=== PATIENT | female | born 1935 | race Caucasian/White ===

== ENCOUNTER 2019-02-21 16:29 | Inpatient (IN) | payer MEDICARE, MEDICAID ==
[~2019-02-21] VITALS: Ht 152.4 cm; Wt 57.2 kg
[2019-02-21] MEDS ORDERED: LORAZEPAM 2 MG/1 ML VIAL IV ONE (16:45)
[2019-02-21] MEDS ORDERED: diphenhydrAMINE 50 MG/1 ML VIAL IM ONE (16:45)
[2019-02-21] MEDS ORDERED: HALOPERIDOL LACTATE 5 MG/1 ML VIAL IM ONE (16:45)
[2019-02-21] MEDS ORDERED: HALOPERIDOL LACTATE 5 MG/1 ML VIAL ONE (16:46)
[2019-02-21] MEDS ORDERED: LORAZEPAM 2 MG/1 ML VIAL ONE (16:48)
[2019-02-21] MEDS ORDERED: diphenhydrAMINE 50 MG/1 ML VIAL ONE (16:52)
[2019-02-21] MEDS ORDERED: LORAZEPAM 2 MG/1 ML VIAL IM ONE (17:00)
[2019-02-21 17:11] LABS: BASOPHILS % (AUTO) 0.3 % (0.0-2.0); EOSINOPHILS # (AUTO) 0.1 K/uL (0.0-0.7); HEMATOCRIT 38.3 % (31.2-41.9); HEMOGLOBIN 12.3 g/dL (10.9-14.3); LYMPHOCYTES # (AUTO) 0.4 K/uL (20.0-40.0); LYMPHOCYTES % (AUTO) 5.2 % (20.5-51.5); MEAN CORPUSCULAR HEMOGLOBIN 27.4 uug (24.7-32.8); MEAN CORPUSCULAR HGB CONC 32 g/dL (32.3-35.6); MEAN CORPUSCULAR VOLUME 85.6 fL (75.5-95.3); MONOCYTES % (AUTO) 11.9 % (0.0-11.0); NEUTROPHILS # (AUTO) 6.8 K/uL (1.8-8.9); NEUTROPHILS % (AUTO) 81.6 % (38.5-71.5); PLATELET COUNT (AUTO) 390 K/uL (179-408); RED BLOOD CELL COUNT(AUTO) 4.48 MIL/uL (3.63-4.92); WHITE BLOOD COUNT (AUTO) 8.3 K/uL (3.8-11.8)
[2019-02-21 17:13] LABS: CARBON DIOXIDE 35 mmol/L (21-32); CHLORIDE 104 mmol/L (98-107); CREATININE 0.9 mg/dL (0.6-1.3); GLUCOSE 116 mg/dL (74-106); POTASSIUM 2.9 mmol/L (3.5-5.1); UREA NITROGEN, BLOOD 28 mg/dL (7-18)
[2019-02-21] MEDS ORDERED: AMLO2.5T4 PO (17:15)
[2019-02-21] MEDS ORDERED: DILTIAZEM HCL 25 MG IV IV ONE (17:15)
[2019-02-21] MEDS ORDERED: ASPIRIN 81 MG TAB.CHEW PO ONE (17:15)
[2019-02-21] MEDS ORDERED: APIX2.5T PO (17:16)
[2019-02-21] MEDS ORDERED: CARV3.12 PO (17:16)
[2019-02-21] MEDS ORDERED: FURO-152 PO (17:16)
[2019-02-21] MEDS ORDERED: DOCU100C36 PO (17:16)
[2019-02-21] MEDS ORDERED: MELA3TAB PO (17:17)
[2019-02-21] MEDS ORDERED: PRAV80TA21 PO (17:17)
[2019-02-21] MEDS ORDERED: FAMO-132 PO (17:17)
[2019-02-21] MEDS ORDERED: MULT1TAB73 PO (17:17)
[2019-02-21] MEDS ORDERED: MAGN400O6 PO (17:17)
[2019-02-21 17:19] LABS: ALANINE AMINOTRANSFERASE 39 U/L (14-59); ALKALINE PHOSPHATASE 155 U/L (50-136); ASPARTATE AMINOTRANSFERASE 40 U/L (15-37); BILIRUBIN,DIRECT 0.3 mg/dL (0.0-0.2); BILIRUBIN,TOTAL 0.8 mg/dL (0.2-1.0); TOTAL PROTEIN, SERUM 6.6 g/dL (6.4-8.2)
[2019-02-21] MEDS ORDERED: CHOL500050 PO (17:19)
[2019-02-21] MEDS ORDERED: ACET-2154 PO (17:19)
[2019-02-21] MEDS ORDERED: TRAZ-182 PO (17:19)
[2019-02-21] MEDS ORDERED: LISI-656 PO (17:19)
[2019-02-21 17:22] LABS: ACETAMINOPHEN < 2.0 ug/mL (10-30)
[2019-02-21 17:27] LABS: ETHANOL < 3 MG/DL (0-0)
[2019-02-21] MEDS ORDERED: ASPIRIN 81 MG TAB.CHEW ONE (17:29)
[2019-02-21] MEDS ORDERED: DILTIAZEM HCL 25 MG IV ONE (17:29)
--- NOTE | 2019-02-21 17:33 | NUR ---
Panel call placed at this time.
--- NOTE | 2019-02-21 17:43 | NUR ---
Neno Gregory at bedside for patient evaluation.
--- NOTE | 2019-02-21 17:46 | NUR ---
Pt. admitted to telemetry , under care of Neno Gregory NP. Dx: Rapid A-fib. Belongs List completed
--- NOTE | 2019-02-21 17:53 | NUR ---
Report to Ran Rn on Telemetry
[2019-02-21] MEDS ORDERED: Medication Not On Formulary EA (Cholecalciferol (Vitamin D3) (Vitamin D3 CAPSULE) 50,000 PO SCH (18:00)
[2019-02-21] MEDS ORDERED: TEMAZEPAM 15 MG CAPSULE PO PRN (18:15)
[2019-02-21] MEDS ORDERED: Z GUARD REMEDY PASTE 57 GM TUBE TOP PRN (18:15)
[2019-02-21] MEDS ORDERED: FUROSEMIDE 40 MG/4 ML VIAL IV ONE ×2 (18:15→23:45)
[2019-02-21] MEDS ORDERED: ONDANSETRON 4 MG/2 ML VIAL IV PRN (18:15)
[2019-02-21] MEDS ORDERED: LORAZEPAM 2 MG/1 ML VIAL IV PRN (18:15)
[2019-02-21] MEDS ORDERED: HYDROCODONE/APAP 5-325MG TABLET PO PRN (18:15)
[2019-02-21] MEDS ORDERED: MAGNESIUM HYDROXIDE 30 ML LIQUID UDC PO PRN (18:15)
[2019-02-21] MEDS ORDERED: MORPHINE SULFATE 2 MG/1 ML DISP.SYRIN IV PRN (18:15)
--- NOTE | 2019-02-21 18:42 | NUR ---
report received from ER nurse. vitals done. pt shows afib on tele monitor. other vitals stable. pt placed on oxygen. skin assessment done. pt has skin tear on buttocks. pictures taken and placed on chart. WOCN nurse consult done. belongings check done by career portals teacher. pt has pitting edema on legs. will administer medications and continue to monitor as ordered.
[2019-02-21 18:55] VITALS: BP 100/48
[2019-02-21] MEDS: POTASSIUM CHLORIDE 50 ML IV SCH ×3 (18:59→21:15)
--- NOTE | 2019-02-21 20:00 | NUR ---
Received report from WALTER Lepe. Patient open eyes when stimulated and follows commands. NO signs of distress noted. Patient is on O2 2L NC. IV is on the right hand, patent and intact. TELE afib at 95. Lungs sounds diminished. Bowel sounds hypoactive. Incontinent with diaper. Bilateral lower extremity pitting edema, R leg 3+, left leg 2+. Safety initiated. Call light within reach. Will continue to monitor.
[2019-02-21 20:10] VITALS: BP 99/54
[2019-02-21] MEDS: FAMOTIDINE 20 MG TABLET PO SCH (20:16)
[2019-02-21] MEDS: ATORVASTATIN 20 MG TABLET PO SCH (20:16)
[2019-02-21] MEDS: CARVEDILOL 3.125 MG TABLET PO SCH (20:20)
[2019-02-21] MEDS ORDERED: TRAZODONE 50 MG TABLET PO SCH (21:00)
--- NOTE | 2019-02-21 22:51 | NUR ---
Patient has shallow breathing, not labored. RR is 22. O2 sat is 93. Will closely monitored.
--- NOTE | 2019-02-21 23:30 | NUR ---
Patient appeared distress with rapid shallow breathing. Vital signs taken, desating to the high 70's to low 80's. Called RT, placed patient on non re breather mask at 15 L and deep suctioning to little improvement. TELE afib at 117. Reached out to [place] [employer] DESIGN ENGINEER. New orders placed. Will continue to monitor.
--- NOTE | 2019-02-21 23:35 | NUR ---
Breathing treatment given. Will continue to monitor.
[2019-02-22] MEDS: ALBUTEROL SULFATE 2.5 MG/3 ML NEBU NEB PRN (00:13)
[2019-02-22 00:25] VITALS: BP 140/75
[2019-02-22] MEDS ORDERED: VANCOMYCIN IV 1 G in PREMIXED 0 EACH IV ONE (00:30)
[2019-02-22] MEDS ORDERED: PIPERACILLIN/TAZOBACTAM/D5W 50 ML IV ONE ×2 (00:43)
[2019-02-22] MEDS ORDERED: VANCOMYCIN IV 200 ML ONE (00:43)
[2019-02-22 05:24] VITALS: BP 124/58
[2019-02-22 05:53] LABS: BASOPHILS % (AUTO) 0.2 % (0.0-2.0); EOSINOPHILS % (AUTO) 0.2 % (0.0-7.0); HEMOGLOBIN 13.5 g/dL (10.9-14.3); LYMPHOCYTES # (AUTO) 0.4 K/uL (20.0-40.0); LYMPHOCYTES % (AUTO) 3.9 % (20.5-51.5); MEAN CORPUSCULAR HEMOGLOBIN 27.4 uug (24.7-32.8); MEAN CORPUSCULAR HGB CONC 31 g/dL (32.3-35.6); MEAN CORPUSCULAR VOLUME 87.3 fL (75.5-95.3); MONOCYTES # (AUTO) 0.9 K/uL (2.0-10.0); MONOCYTES % (AUTO) 8.4 % (0.0-11.0); NEUTROPHILS # (AUTO) 9.3 K/uL (1.8-8.9); NEUTROPHILS % (AUTO) 87.3 % (38.5-71.5); PLATELET COUNT (AUTO) 299 K/uL (179-408); RED BLOOD CELL COUNT(AUTO) 4.92 MIL/uL (3.63-4.92); WHITE BLOOD COUNT (AUTO) 10.7 K/uL (3.8-11.8)
[2019-02-22 06:14] LABS: ALANINE AMINOTRANSFERASE 38 U/L (14-59); ALKALINE PHOSPHATASE 144 U/L (50-136); ASPARTATE AMINOTRANSFERASE 48 U/L (15-37); BILIRUBIN,TOTAL 0.8 mg/dL (0.2-1.0); CARBON DIOXIDE 31 mmol/L (21-32); CHLORIDE 105 mmol/L (98-107); CHOLESTEROL 95 mg/dL (<200); CREATININE 0.8 mg/dL (0.6-1.3); GLUCOSE 137 mg/dL (74-106); HDL CHOLESTEROL 32 mg/dL (40-60); MAGNESIUM 1.7 mg/dL (1.8-2.4); PHOSPHOROUS 3.7 mg/dL (2.5-4.9); POTASSIUM 3.6 mmol/L (3.5-5.1); TOTAL PROTEIN, SERUM 6.8 g/dL (6.4-8.2); TRIGLYCERIDES 60 MG/DL (30-150); UREA NITROGEN, BLOOD 24 mg/dL (7-18)
--- NOTE | 2019-02-22 06:14 | NUR ---
Patient slept intermittently t/o shift. Patient is easily aroused when name is called. Patient has period of confusion but re-directable. Patient remains on o2 NC at 5L sating at 96. TELE afib 119. Good urine output. Vitals signs is stable. Safety and comfort measures maintained t/o shift. All meds given as ordered. All needs met.
[2019-02-22] MEDS ORDERED: MAGNESIUM OXIDE 400 MG TABLET PO ONE (07:45)
[2019-02-22 07:47] LABS: THYROID STIMULATING HORMONE 1.825 mIU/mL (0.358-3.740)
[2019-02-22 08:09] VITALS: BP 127/82
[2019-02-22] MEDS ORDERED: DIGOXIN 500 MCG/2 ML AMP IV PRN (08:30)
[2019-02-22] MEDS: DOCUSATE SODIUM 100 MG CAPSULE PO SCH (08:48)
[2019-02-22] MEDS: FUROSEMIDE 40 MG/4 ML VIAL IV SCH ×2 (08:48→20:32)
[2019-02-22] MEDS: MULTIVITAMINS,THERAPEUTIC TABLET PO SCH (08:48)
[2019-02-22] MEDS: APIXABAN 5 MG TABLET PO SCH ×2 (08:52→17:27)
[2019-02-22] MEDS: AMLODIPINE 2.5 MG TABLET PO SCH (08:57)
[2019-02-22] MEDS: CARVEDILOL 3.125 MG TABLET PO SCH ×2 (08:57→20:33)
[2019-02-22] MEDS: LISINOPRIL 5 MG TABLET PO SCH (08:59)
[2019-02-22] MEDS ORDERED: Medication Not On Formulary EA (Apixaban (Eliquis) 2.5 MG) PO SCH (09:00)
[2019-02-22] MEDS ORDERED: Medication Not On Formulary EA (Multivitamins (Multivitamin) 1 EACH) PO SCH (09:00)
[2019-02-22 09:54] LABS: ABG BASE EXCESS 12.2 mmol/L; ABG HCO3 39.4 mmol/L; ABG PCO2 61.8 mmHg (35.0-45.0); ABG PH 7.422 (7.350-7.450); ABG PO2 62.8 mmHg (75.0-100.0); ABG SITE LEFT RADIAL; COHb 1.4 % (0.5-1.5); MetHb 0.3 % (0.0-1.5); VENT MODE Nasal Cannula
--- NOTE | 2019-02-22 10:16 | NUR ---
Dr. Mosher here to see pt. Full report given. New orders received.
[2019-02-22] MEDS: MAGNESIUM SULFATE/D5W 100 ML IV SCH ×2 (10:46→14:22)
[2019-02-22] MEDS: DIGOXIN 500 MCG/2 ML AMP IV SCH ×3 (10:46→22:30)
--- NOTE | 2019-02-22 11:08 | NUR ---
Clinical pharmacy note-Vancomycin dosing per pharmacy Subjective: To start Vancomycin dosing on this patient for possible pneumonia(Indication of order is pna but [employer]ING note mentioned CHF only for now) Objective: BUN 24 Scr 0.8 WBC 10.7 Temp 97.8 Ht 152.4cm Wt 56.897kg Assessment/Plan: Patient had Vancomycin 1 gram this am at 0110. Will continue 1gram IV every 27hrs(second dose tomorrow at 0400) and draw trough by 4th dose(not ordered yet) for expected trough around 15.69. If renal function changes significantly, will consider dosing by level(another risk factor is advanced age, 83 yrs old). Will monitor daily.
[2019-02-22] MEDS: PIPERACILLIN/TAZOBACTAM/D5W 50 ML IV SCH ×3 (11:55→23:54)
[2019-02-22 12:00] VITALS: BP 113/30
--- NOTE | 2019-02-22 12:06 | NUR ---
Spoke with Dr. Good on the telephone and reported ABG results. To maintain pt's saturation 88-92% per MD.
[2019-02-22] MEDS ORDERED: OLANZAPINE 2.5 MG TABLET PO PRN (14:45)
[2019-02-22 16:00] VITALS: BP 107/50
--- NOTE | 2019-02-22 20:00 | NUR ---
RECEIVED PATIENT ASLEEP IN BED, RESTING COMFORTABLY. NO SIGNS OF ACUTE DISTRESS OR DISCOMFORT NOTED OR OBSERVED. 1:1 SITTER AT BEDSIDE. ALL SAFETY AND FALL PRECAUTIONS IN PLACE. CALL LIGHT AND PERSONAL ITEMS WITHIN REACH AT ALL TIMES. WILL CONTINUE TO MONITOR.
[2019-02-22 20:22] VITALS: BP 102/39
[2019-02-22] MEDS: ATORVASTATIN 20 MG TABLET PO SCH (20:33)
[2019-02-22] MEDS: FAMOTIDINE 20 MG TABLET PO SCH (20:34)
[2019-02-22] MEDS: CULTURELLE CAPSULE PO SCH (20:34)
--- NOTE | 2019-02-22 22:10 | NUR ---
SPOKE WITH ISIDRO PARISI REGARDING PATIENT ORDER FOR DIGOXIN 250 MCG ORDERED BY MD CHAVARRIA. EXPLAINED THAT PATIENT RECEIVED FIRST DOSE AT 1730 AND EXPERIENCED A DECREASE IN HR TO 34 AT CHANGE OF SHIFT, BUT HR IS NOW IN 70S. ALSO ADVISED TELE SHOWS 3.5 SECOND PAUSES FOLLOWED BY 3 SECOND PAUSES AND BP IS LOW AT 102/39. MD ADVISED TO HOLD 2230 DOSE OF DIGOXIN AND DECREASE DIGOXIN DOSE TO 125 MCG. ORDERS NOTED AND CARRIED OUT.
[2019-02-23] VITALS (8 sets, daily range): BP systolic 113–140; BP diastolic 52–90
--- NOTE | 2019-02-23 00:47 | NUR ---
SPOKE WITH PHARMACY REGARDING 125 MCG DIGOXIN DOSE; CLARIFIED THAT IT SHOULD BE 3RD OF 3 DOSES PRESCRIBED BY MD CHAVARRIA ON 02/22/19. WILL HAVE AM SHIFT CLARIFY FURTHER WITH MD IN THE MORNING
--- NOTE | 2019-02-23 03:09 | NUR ---
VERIFIED WITH LAB THAT THEY HAVE NOT YET RECEIVED A URINE SAMPLE FOR CULTURE. PATIENT BECOMES EASILY AGITATED WHEN HOB IS LOWERED, WHICH WILL BE NEEDED IN ORDER TO USE CATH FOR URINE SAMPLE, SO PRESCRIBED .25ml/0.5mg ATIVAN GIVEN AT 0304 VIA IV, PRIOR TO COLLECTING SAMPLE FROM PATIENT.
--- NOTE | 2019-02-23 03:45 | NUR ---
URINE SPECIMEN OBTAINED VIA STRAIGHT CATH AND TAKEN TO LAB FOR URINE CULTURE/URINALYSIS
--- NOTE | 2019-02-23 03:50 | NUR ---
WOUND CARE PROVIDED FOR SACRAL DECUB - CLEANSED, APPLIED ZGUARD, AND COVERED WITH MEPILEX. PATIENT TOLERATED WELL.
[2019-02-23] MEDS: VANCOMYCIN IV 1 G in PREMIXED 0 EACH IV SCH (03:59)
[2019-02-23] MEDS: ALBUTEROL SULFATE 2.5 MG/3 ML NEBU NEB PRN ×2 (04:07→08:47)
[2019-02-23 04:13] LABS: *BILIRUBIN,URIN NEGATIVE (NEGATIVE); *BLOOD, URINE NEGATIVE (NEGATIVE); *CLARITY,URINE CLEAR (CLEAR); *COLOR,URINE YELLOW (YELLOW); *KETONES,URINE NEGATIVE (NEGATIVE); *UROBILINOGEN,URINE 0.2 E.U./dl (NORMAL); LEUKOCYTE ESTERASE ,URINE NEGATIVE (NEGATIVE); NITRITE, URINE NEGATIVE (NEGATIVE); UGLUCOSE NEGATIVE (NEGATIVE)
--- NOTE | 2019-02-23 04:15 | NUR ---
PATIENT COMPLAINING OF SOB AND REQUESTING BREATHING TREATMENT. I CONTACTED RESPIRATORY AND PRN BREATHING TREATMENT WAS GIVEN AND TOLERATED WELL.
--- NOTE | 2019-02-23 05:11 | NUR ---
PATIENT SLEPT INTERMITTENTLY THROUGHOUT NIGHT. COMPLAINTS OF PAIN WERE ADDRESSED WITH PRESCRIBED PAIN MEDICATION. URINE SAMPLE OBTAINED VIA STRAIGHT CATH AND SENT TO LAB FOR URINE CULTURE/ANALYSIS. PRN BREATHING TREATMENT PROVIDED BY RESPIRATORY DEPT REQUESTED BY PATIENT. PRESCRIBED ANTIBIOTICS PROVIDED VIA IV, ORDERED, AND PATIENT TOLERATED WELL, WITH NO SIGNS/SYMPTOMS OF ADVERSE EFFECTS NOTED OR OBSERVED. SAFETY AND FALL PRECAUTION MEASURES REMAIN IN PLACE. 1:1 SITTER AT BEDSIDE FOR PATIENT SAFETY. CALL LIGHT AND PERSONAL BELONGINGS REMAIN WITHIN REACH. WILL PROVIDE REPORT TO AM SHIFT.
[2019-02-23] MEDS: PIPERACILLIN/TAZOBACTAM/D5W 50 ML IV SCH ×4 (06:09→23:41)
[2019-02-23 06:41] LABS: BASOPHILS % (AUTO) 0.1 % (0.0-2.0); EOSINOPHILS # (AUTO) 0.1 K/uL (0.0-0.7); EOSINOPHILS % (AUTO) 0.9 % (0.0-7.0); HEMATOCRIT 38.5 % (31.2-41.9); HEMOGLOBIN 12.2 g/dL (10.9-14.3); LYMPHOCYTES # (AUTO) 0.4 K/uL (20.0-40.0); LYMPHOCYTES % (AUTO) 4.6 % (20.5-51.5); MEAN CORPUSCULAR HEMOGLOBIN 27.6 uug (24.7-32.8); MEAN CORPUSCULAR HGB CONC 32 g/dL (32.3-35.6); MEAN CORPUSCULAR VOLUME 87.3 fL (75.5-95.3); MONOCYTES # (AUTO) 0.7 K/uL (2.0-10.0); MONOCYTES % (AUTO) 7.9 % (0.0-11.0); NEUTROPHILS # (AUTO) 8.1 K/uL (1.8-8.9); NEUTROPHILS % (AUTO) 86.5 % (38.5-71.5); PLATELET COUNT (AUTO) 306 K/uL (179-408); RED BLOOD CELL COUNT(AUTO) 4.41 MIL/uL (3.63-4.92); WHITE BLOOD COUNT (AUTO) 9.4 K/uL (3.8-11.8)
[2019-02-23 06:57] LABS: ALANINE AMINOTRANSFERASE 23 U/L (14-59); ALKALINE PHOSPHATASE 108 U/L (50-136); ASPARTATE AMINOTRANSFERASE 25 U/L (15-37); CREATININE 0.9 mg/dL (0.6-1.3); GLUCOSE 127 mg/dL (74-106); MAGNESIUM 2.1 mg/dL (1.8-2.4); UREA NITROGEN, BLOOD 17 mg/dL (7-18)
[2019-02-23 07:38] LABS: CARBON DIOXIDE 39 mmol/L (21-32); CHLORIDE 104 mmol/L (98-107); POTASSIUM 3.3 mmol/L (3.5-5.1)
[2019-02-23] MEDS ORDERED: DIGOXIN 125 MCG TABLET PO SCH (09:30)
[2019-02-23] MEDS ORDERED: DIGOXIN 500 MCG/2 ML AMP IV SCH ×2 (10:00)
[2019-02-23 12:02] LABS: *AMPHETAMINE, URINE NEGATIVE (NEGATIVE); *BARBITURATE, URINE NEGATIVE (NEGATIVE); *CANNABINOID, URINE NEGATIVE (NEGATIVE); *COCCAINE, URINE NEGATIVE (NEGATIVE); *OPIATE, URINE NEGATIVE (NEGATIVE); *PHENCYCLIDINE SCREEN,URINE NEGATIVE (NEGATIVE)
--- NOTE | 2019-02-23 12:10 | NUR ---
Clinical pharmacy note-Vancomycin dosing per pharmacy Subjective: To continue Vancomycin dosing on this patient for possible pneumonia(Indication of order is pna but [employer]UC[employer] WEAP[employer] CUSTODIAN note mentioned CHF only for now) Objective: BUN 17 Scr 0.9 WBC 9.4 Temp 97.7 Ht 152.4cm Wt 56.897kg Assessment/Plan: Will continue 1gram IV every 27hrs(second dose was today at 0400) and draw trough by 4th dose(not ordered yet) for expected trough around 15.69. If renal function changes significantly, will consider dosing by level(another risk factor is advanced age, 83 yrs old). Will monitor daily.
[2019-02-23] MEDS: MULTIVITAMINS,THERAPEUTIC TABLET PO SCH (12:22)
[2019-02-23] MEDS: CULTURELLE CAPSULE PO SCH ×2 (12:22→20:52)
[2019-02-23] MEDS: CARVEDILOL 3.125 MG TABLET PO SCH ×2 (12:23→20:55)
[2019-02-23] MEDS: APIXABAN 5 MG TABLET PO SCH ×2 (12:24→18:50)
[2019-02-23] MEDS: DOCUSATE SODIUM 100 MG CAPSULE PO SCH (12:25)
[2019-02-23] MEDS: ACETAzolamide SODIUM 500 MG VIAL IV SCH (12:25)
[2019-02-23] MEDS: AMLODIPINE 2.5 MG TABLET PO SCH (12:25)
[2019-02-23] MEDS ORDERED: POTASSIUM CHLORIDE 50 ML IV SCH (13:15)
[2019-02-23] MEDS: POTASSIUM CHLORIDE 50 ML IV SCH ×3 (14:11→17:10)
[2019-02-23] MEDS: LISINOPRIL 5 MG TABLET PO SCH (15:16)
--- NOTE | 2019-02-23 18:41 | NUR ---
Patient with 1:1 sitter with stable vitals ; calm in comfortable in bed.
--- NOTE | 2019-02-23 19:30 | NUR ---
Report received. Patient lethargic, arouses to name, able to follow simple commands. Oriented to name only; some words garbled. With O2 at 2L NC. With 1:1 sitter for safety.
[2019-02-23] MEDS: FAMOTIDINE 20 MG TABLET PO SCH (20:52)
--- NOTE | 2019-02-24 | NUR ---
Sat 86% on 2L NC. O2 increased to 3L; sat improved. Cleaned and repositioned Q2H.
[2019-02-24 00:06] VITALS: BP 118/43
[2019-02-24] MEDS: ALBUTEROL SULFATE 2.5 MG/3 ML NEBU NEB PRN ×4 (02:44→20:41)
[2019-02-24 04:00] VITALS: BP 144/86
[2019-02-24] MEDS: PIPERACILLIN/TAZOBACTAM/D5W 50 ML IV SCH ×3 (05:23→18:41)
--- NOTE | 2019-02-24 05:30 | NUR ---
Mildly SOB and with increased congestion during diaper change. Sat 97-99% on 2 L NC. HOB elevated above 30 degrees at all times. PRODUCE SPECIALIST Jaelyn informed; order received. Flower catheter F#16 inserted aseptically; with clear yellow urine draining. Skin care provided. New Mepilex dressing to affected area.
--- NOTE | 2019-02-24 06:30 | NUR ---
No neuro changes. primary care nurse practitioner: Afib with rate 40's-120's and periods of pauses the longest was 12.3 seconds as per MT. Patient asymptomatic.
[2019-02-24] MEDS: VANCOMYCIN IV 1 G in PREMIXED 0 EACH IV SCH (06:54)
[2019-02-24 07:30] VITALS: BP 154/95
[2019-02-24 07:58] LABS: CARBON DIOXIDE 37 mmol/L (21-32); CHLORIDE 105 mmol/L (98-107); CREATININE 0.7 mg/dL (0.6-1.3); GLUCOSE 128 mg/dL (74-106); MAGNESIUM 2.1 mg/dL (1.8-2.4); PHOSPHOROUS 3.1 mg/dL (2.5-4.9); POTASSIUM 3.6 mmol/L (3.5-5.1); UREA NITROGEN, BLOOD 17 mg/dL (7-18)
[2019-02-24 08:13] LABS: BASOPHILS % (AUTO) 0.3 % (0.0-2.0); EOSINOPHILS # (AUTO) 0.1 K/uL (0.0-0.7); EOSINOPHILS % (AUTO) 1.2 % (0.0-7.0); HEMATOCRIT 37.6 % (31.2-41.9); HEMOGLOBIN 11.9 g/dL (10.9-14.3); LYMPHOCYTES # (AUTO) 0.4 K/uL (20.0-40.0); LYMPHOCYTES % (AUTO) 4.9 % (20.5-51.5); MEAN CORPUSCULAR HEMOGLOBIN 27.9 uug (24.7-32.8); MEAN CORPUSCULAR HGB CONC 32 g/dL (32.3-35.6); MEAN CORPUSCULAR VOLUME 87.8 fL (75.5-95.3); MONOCYTES # (AUTO) 0.5 K/uL (2.0-10.0); MONOCYTES % (AUTO) 5.8 % (0.0-11.0); NEUTROPHILS # (AUTO) 6.9 K/uL (1.8-8.9); NEUTROPHILS % (AUTO) 87.8 % (38.5-71.5); PLATELET COUNT (AUTO) 332 K/uL (179-408); RED BLOOD CELL COUNT(AUTO) 4.28 MIL/uL (3.63-4.92); WHITE BLOOD COUNT (AUTO) 7.8 K/uL (3.8-11.8)
[2019-02-24] MEDS ORDERED: ERGOCALCIFEROL 50,000 UNIT CAPSULE PO SCH (09:00)
[2019-02-24] MEDS: CARVEDILOL 3.125 MG TABLET PO SCH (09:00)
[2019-02-24] MEDS: DOCUSATE SODIUM 100 MG CAPSULE PO SCH (09:34)
[2019-02-24] MEDS: CULTURELLE CAPSULE PO SCH ×2 (09:34→20:20)
[2019-02-24] MEDS: ACETAzolamide SODIUM 500 MG VIAL IV SCH (09:34)
[2019-02-24] MEDS: MULTIVITAMINS,THERAPEUTIC TABLET PO SCH (09:35)
--- NOTE | 2019-02-24 09:35 | NUR ---
Dr Russ here to see patient. Student Officer showed strips of pauses, most was 12secs from hs captured while on tele monitor. Per Dr Russ ok to hold coreg.
[2019-02-24] MEDS: AMLODIPINE 2.5 MG TABLET PO SCH (09:36)
[2019-02-24] MEDS: LISINOPRIL 5 MG TABLET PO SCH (09:36)
[2019-02-24] MEDS: APIXABAN 5 MG TABLET PO SCH ×2 (09:40→17:27)
[2019-02-24] MEDS ORDERED: POTASSIUM CHLORIDE 20 MEQ TAB.PRT.SR PO ONE (10:45)
[2019-02-24 11:00] VITALS: BP 124/58
--- NOTE | 2019-02-24 12:21 | NUR ---
WOUND CARE CONSULT: PT PRESENTS WITH WOUND TO RT LOWER LEG WITH REDNESS AND SWELLING AND SACRAL STAGE 2 ULCER, PRESENT ON ADMISSION. PT ALSO NOTED TO HAVE SACRAL DIMPLE. RECOMMENDATIONS MADE FOR SKIN PROTECTION AND WOUND CARE. DISCUSSED WITH NURSING STAFF. DEFER TO DPM FOR RT LOWER LEG. DR MALIK AWARE OF DPM CONSULT REQUEST. FIRST STEP LOW AIRLOSS MATTRESS ON ORDER. CURRENT SLADE SCORE IS 12. WILL SEE PRN. PARISI IN AGREEMENT WITH PLAN OF CARE. Addendum: 02/24/19 at 1225 by JASMYN CATES RN Amended: Links added.
--- NOTE | 2019-02-24 12:40 | NUR ---
Clinical pharmacy note-Vancomycin dosing per pharmacy Subjective: To continue Vancomycin dosing on this patient for Acute encephalopathy ? UTI ?PNA per ID note Objective: BUN 17 Scr 0.7 WBC 7.8 Temp 98 Ht 152.4cm Wt 56.897kg Assessment/Plan: Will continue same dose of vanco 1gram IV every 27hrs for today. 3rd dose was today at 0700. Plan to draw trough by 4th dose (ordered for 02/25 at 0930) for expected trough around 15 mcg/ml. Pharmacy shall review the level & adjust the dose if needed in am. Will monitor daily.
[2019-02-24 15:39] VITALS: BP 125/60
[2019-02-24] MEDS ORDERED: LORA0.5T48 GT (15:54)
[2019-02-24] MEDS ORDERED: MULT-24 PO (15:56)
[2019-02-24] MEDS ORDERED: LISI-656 PO (15:57)
[2019-02-24] MEDS ORDERED: CYAN100096 PO (15:57)
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
[2019-02-24 20:00] VITALS: BP 122/40
[2019-02-24] MEDS: FAMOTIDINE 20 MG TABLET PO SCH (20:20)
[2019-02-24] MEDS: ACETAMINOPHEN 325 MG TABLET PO PRN (21:53)
[2019-02-24] MEDS ORDERED: PIPERACILLIN/TAZOBACTAM/D5W 100 ML IV ONE (21:59)
[2019-02-24] MEDS ORDERED: VANCOMYCIN IV 1 G in PREMIXED 0 EACH IV SCH (22:00)
[2019-02-24] MEDS: PIPERACILLIN/TAZOBACTAM/D5W 3.375 G in PREMIXED 1 EACH IV SCH (22:08)
[2019-02-24] MEDS ORDERED: VANCOMYCIN IV 200 ML ONE (22:15)
[2019-02-25] VITALS (11 sets, daily range): BP systolic 103–147; BP diastolic 65–90
[2019-02-25] MEDS: ALBUTEROL SULFATE 2.5 MG/3 ML NEBU NEB PRN (05:13)
--- NOTE | 2019-02-25 05:19 | NUR ---
Patient finally fall asleep, no complain of sob, no chest pain. Kept HOB elevated, on oxygen 2lpm for assist. Patient has no further episodes of moist cough at this time. Patient given tylenol as ordered for mild gen body pain with effective results. Patient has on and off anxiety episodes, cont to redirect behavior, npo at this time. cont on 1;1 sitter for safety, cont to monitor.
[2019-02-25] MEDS: PIPERACILLIN/TAZOBACTAM/D5W 3.375 G in PREMIXED 1 EACH IV SCH (05:37)
[2019-02-25 06:17] LABS: BASOPHILS % (AUTO) 0.5 % (0.0-2.0); EOSINOPHILS # (AUTO) 0.2 K/uL (0.0-0.7); EOSINOPHILS % (AUTO) 2.6 % (0.0-7.0); HEMATOCRIT 37.3 % (31.2-41.9); HEMOGLOBIN 11.7 g/dL (10.9-14.3); LYMPHOCYTES # (AUTO) 0.6 K/uL (20.0-40.0); LYMPHOCYTES % (AUTO) 9.3 % (20.5-51.5); MEAN CORPUSCULAR HEMOGLOBIN 27.4 uug (24.7-32.8); MEAN CORPUSCULAR HGB CONC 32 g/dL (32.3-35.6); MEAN CORPUSCULAR VOLUME 87.2 fL (75.5-95.3); MONOCYTES # (AUTO) 0.5 K/uL (2.0-10.0); MONOCYTES % (AUTO) 6.7 % (0.0-11.0); NEUTROPHILS # (AUTO) 5.5 K/uL (1.8-8.9); NEUTROPHILS % (AUTO) 80.9 % (38.5-71.5); PLATELET COUNT (AUTO) 328 K/uL (179-408); RED BLOOD CELL COUNT(AUTO) 4.28 MIL/uL (3.63-4.92); WHITE BLOOD COUNT (AUTO) 6.8 K/uL (3.8-11.8)
[2019-02-25 06:35] LABS: ALANINE AMINOTRANSFERASE 25 U/L (14-59); ALKALINE PHOSPHATASE 95 U/L (50-136); ASPARTATE AMINOTRANSFERASE 23 U/L (15-37); BILIRUBIN,TOTAL 0.7 mg/dL (0.2-1.0); CARBON DIOXIDE 35 mmol/L (21-32); CHLORIDE 108 mmol/L (98-107); GLUCOSE 93 mg/dL (74-106); MAGNESIUM 2.1 mg/dL (1.8-2.4); PHOSPHOROUS 3.2 mg/dL (2.5-4.9); POTASSIUM 3.1 mmol/L (3.5-5.1); TOTAL PROTEIN, SERUM 6.2 g/dL (6.4-8.2); UREA NITROGEN, BLOOD 19 mg/dL (7-18)
[2019-02-25] MEDS ORDERED: LIDOCAINE HCL 1% 20 ML VIAL ONE (06:59)
[2019-02-25] MEDS ORDERED: IOHEXOL 300MG/ML 50 ML VIAL ONE (07:00)
[2019-02-25] MEDS ORDERED: BACITRACIN 50,000 UNITS VIAL ONE (07:00)
--- NOTE | 2019-02-25 07:10 | NUR ---
RECEIVED PATIENT IN BED WITH HOB ELEVATED WITH 1:1 SITTER FOR SAFETY AND READY TO BE OFFICE NURSE PRACTITIONER FOR A PROCEDURE. NO CO PAIN AND NO SOB OR NO S/S OF ACUTE DISTRESS NOTED AT THIS TIME, WILL CONTINUE TO MONITOR.
--- NOTE | 2019-02-25 07:20 | NUR ---
patient left for procedure, no s/s of scute distress noted at this time., no sob noted.
[2019-02-25] MEDS ORDERED: FENTANYL CITRATE 100 MCG/2 ML AMPUL ONE (07:24)
[2019-02-25] MEDS ORDERED: POTASSIUM CHLORIDE 20 MEQ TAB.PRT.SR PO ONE ×2 (07:45→16:00)
[2019-02-25] MEDS ORDERED: ALBUTEROL SULFATE 2.5 MG/3 ML NEBU ONE (08:49)
[2019-02-25] MEDS: ACETAzolamide SODIUM 500 MG VIAL IV SCH (09:00)
[2019-02-25] MEDS: DOCUSATE SODIUM 100 MG CAPSULE PO SCH (09:00)
[2019-02-25] MEDS: CULTURELLE CAPSULE PO SCH ×2 (09:00→21:03)
[2019-02-25] MEDS: MULTIVITAMINS,THERAPEUTIC TABLET PO SCH (09:00)
--- NOTE | 2019-02-25 09:42 | NUR ---
PATIENT BACK FROM PROCEDURE WITH ORDER OF REGULAR DIET, PCXR, CARVEDILOL 6.25MG BID.
[2019-02-25] MEDS: LISINOPRIL 5 MG TABLET PO SCH (10:00)
[2019-02-25] MEDS ORDERED: CARVEDILOL 6.25 MG TABLET PO SCH ×2 (10:56→18:00)
--- NOTE | 2019-02-25 13:18 | NUR ---
Clinical pharmacy note-Vancomycin dosing per pharmacy Subjective: To restart Vancomycin dosing on this patient for Acute encephalopathy ? UTI ?PNA per ID note Objective: BUN 19 Scr 1.0 WBC 6.8 Temp 98.2 Ht 152.4cm Wt 56.897kg Assessment/Plan: Vancomycin was discontinued by ID last night but resumed by attending MD same night (clarified with ID to continue for now, she will review patient today again). Patient was on Vancomycin 1 gram IV every 27hrs (3rd dose given yesterday at 0700) but since it was d/c'd and re-started NH dosed another 1 gram at 2240. Since patient had 2 doses of Vancomycin in one day and renal function is decreasing(1.0 vs 0.7), will order random for tomorrow am(ordered ). will follow the level for further dosing.
[2019-02-25] MEDS ORDERED: PIPERACILLIN/TAZOBACTAM/D5W 3.375 G in PREMIXED 1 EACH IV SCH (14:00)
[2019-02-25] MEDS ORDERED: POTASSIUM CHLORIDE 20 MEQ POWDER PACKET PO ONE (16:45)
[2019-02-25] MEDS: FUROSEMIDE 20 MG TABLET PO SCH (17:41)
[2019-02-25] MEDS: CARVEDILOL 12.5 MG TABLET PO SCH (17:48)
--- NOTE | 2019-02-25 18:46 | NUR ---
PATIENT CONTINUE WITH 1:1 SITTER FOR SAFETY , ALERT AND ORIENTED , PATIENT COOPERATIVE AND TAKE HER MEDICATION, IV INTACT AND PATENT, CONTINUE TO MONITOR, CONTINUE TREATMENT PLAN. HAD PACEMAKER PLACEMENT THIS MORNING AND TOLERATED WELL
--- NOTE | 2019-02-25 19:41 | NUR ---
Received patient asleep in bed, with air mattress in place. She has oxygen support at 1lpm via nasal cannula. Still with IV access on the left forearm, intact. Noted s/p pacemaker placement this morning, noted dressing on left chest wall, dry and intact. Bed in low position, locked, side rails up x 2, with sitter at bedside for safety. Will continue to monitor
[2019-02-25] MEDS: FAMOTIDINE 20 MG TABLET PO SCH (21:03)
[2019-02-26] VITALS: BP_SYST 117; BP_SYST 138; BP_DIAS 58; BP_DIAS 75
[2019-02-26] MEDS: ALBUTEROL SULFATE 2.5 MG/3 ML NEBU NEB PRN ×2 (03:47→10:39)
[2019-02-26 04:00] VITALS: BP 114/75
--- NOTE | 2019-02-26 06:34 | NUR ---
Patient slept intermittently throughout the night. She has oxygen support at 1lpm via nasal cannula. Still with IV access on the left forearm, intact. Attended all needs. Ensured safety and comfort. Still with sitter at bedside for safety. No untoward events noted.
--- NOTE | 2019-02-26 07:15 | NUR ---
Received patient in bed,alert and oriented. with 1: 1 sitter at bedside for safety. On oxygen support at 1 LPM via nasal cannula. IV access on the left forearm, intact. s/p pacemaker placement, dressing on left chest wall, dry and intact. Bed in low position, locked, side rails up x 2, Will continue to monitor and continue treatment plan.
[2019-02-26] MEDS ORDERED: IV LACTATED RINGERS SOLUTION 1,000 ML BAG MC ONE (07:35)
[2019-02-26] MEDS ORDERED: CEFAZOLIN 1 G VIAL MC ONE (07:35)
[2019-02-26] MEDS ORDERED: IRR NORMAL SALINE IRRIGATION 1,000 ML BOTTLE IR ONE (07:35)
[2019-02-26] MEDS ORDERED: PROPOFOL 200 MG/20 ML BOTTLE IV ONE (07:35)
[2019-02-26] MEDS: CARVEDILOL 12.5 MG TABLET PO SCH ×2 (08:39→18:10)
[2019-02-26] MEDS: MULTIVITAMINS,THERAPEUTIC TABLET PO SCH (08:40)
[2019-02-26] MEDS: DOCUSATE SODIUM 100 MG CAPSULE PO SCH (08:40)
[2019-02-26] MEDS: ACETAzolamide SODIUM 500 MG VIAL IV SCH (08:40)
[2019-02-26] MEDS: CULTURELLE CAPSULE PO SCH ×2 (08:40→20:47)
[2019-02-26] MEDS: FUROSEMIDE 20 MG TABLET PO SCH (08:40)
[2019-02-26] MEDS ORDERED: DIGOXIN 500 MCG/2 ML AMP IV ONE (09:00)
[2019-02-26 11:30] VITALS: BP 113/55
--- NOTE | 2019-02-26 12:31 | NUR ---
Called patient's conservator Camila for consent for US guided thoracentesis for the patient. Spoke to the conservator and she wants to speak with Dr. Good regarding the thoracentesis before she can give the consent.
--- NOTE | 2019-02-26 12:49 | NUR ---
Called Dr. Good that the patient's conservator needs to talk to him before she can provide consent for thoracentesis for the patient, Doctor stated that he will call the conservator (Camila)
[2019-02-26] MEDS: DIGOXIN 500 MCG/2 ML AMP IV SCH ×2 (15:00→20:44)
[2019-02-26 16:00] VITALS: BP 137/68
--- NOTE | 2019-02-26 17:50 | NUR ---
Thoracentesis done by Dr. Batista and 825ml fluid taken out from the right side and seen to lab for cytology.
[2019-02-26 18:01] VITALS: BP 135/94
--- NOTE | 2019-02-26 18:40 | NUR ---
continue with 1:1 sitter, no c/o pain noted at this time, patient very cooperative , safety and comfort noted at this time. will continue treatment plan.
--- NOTE | 2019-02-26 19:20 | NUR ---
Received pt awake, alert and orientedx2. Pt shows no signs of acute distress. Pt iv intact. 1:1 sitter for safety. Safety and comfort provided. Will continue to monitor.
[2019-02-26 20:25] VITALS: BP 117/52
[2019-02-26] MEDS: FAMOTIDINE 20 MG TABLET PO SCH (20:47)
[2019-02-26] MEDS: ACETAMINOPHEN 325 MG TABLET PO PRN (22:19)
[2019-02-27 00:20] VITALS: BP 140/70
[2019-02-27 04:00] VITALS: BP 139/58
--- NOTE | 2019-02-27 06:34 | NUR ---
PT SLEPT INTERMITTENTLY. PT SHOWS NO SIGNS OF ACUTE DISTRESS. PT IV INTACT. SITTER AT BEDSIDE FOR SAFETY.HILL CATHETER INTACT AND DWELLING WELL. PT HAVE EPISODES OF 8 BEATS OF V-TACH AT 0311H AND UNDERLYING AFIB AND V PACE. PRESCRIBED MEDICATION GIVEN AND PT TOLERATED IT WELL. PT FORGETFUL AND NEEDS REORIENTATION. SAFETY AND COMFORT PROVIDED. ALL NEEDS ARE MET. WILL ENDORSE ACCORDINGLY TO INCOMING NURSE FOR CONTINUITY OF CARE.
[2019-02-27] MEDS: FUROSEMIDE 20 MG TABLET PO SCH (08:47)
[2019-02-27] MEDS: MULTIVITAMINS,THERAPEUTIC TABLET PO SCH (08:47)
[2019-02-27] MEDS: CULTURELLE CAPSULE PO SCH (08:47)
[2019-02-27] MEDS: DOCUSATE SODIUM 100 MG CAPSULE PO SCH (08:47)
[2019-02-27] MEDS: ACETAzolamide SODIUM 500 MG VIAL IV SCH (08:49)
[2019-02-27] MEDS: CARVEDILOL 12.5 MG TABLET PO SCH (08:55)
[2019-02-27] MEDS ORDERED: DIGOXIN 125 MCG TABLET PO SCH (09:00)
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
[2019-02-27 12:00] VITALS: BP 114/58
--- NOTE | 2019-02-27 15:28 | NUR ---
Report given to Marcus of [facility], patient aware of discharge but with periods of confusion.
--- NOTE | 2019-02-27 15:30 | NUR ---
Discharge in stable condition. With stable vital signs on O2 at 2LPM sating well at 95%. No SOB noted, no chest pains. Not in any from of distress.
== END 2019-02-27 13:30 | DRG 242 ==
LOC: ER 16:34 → TELE3 17:57
PROVIDERS: ADMIT Nurse Practitioner Acute Care; ATTEND Nurse Practitioner Acute Care
PROC: 0HBRXZZ Excision of Toe Nail, External Approach (ICD-10-PCS; 2019-02-24)
PROC: 0JH605Z Insertion of Pacemaker, Single Chamber Rate Responsive into Chest Subcutaneous Tissue and Fascia, Open Approach (ICD-10-PCS; principal; 2019-02-25)
PROC: 02HK3JZ Insertion of Pacemaker Lead into Right Ventricle, Percutaneous Approach (ICD-10-PCS; 2019-02-25)
PROC: 0W993ZX Drainage of Right Pleural Cavity, Percutaneous Approach, Diagnostic (ICD-10-PCS; 2019-02-26)
DX: I48.1 Persistent atrial fibrillation (principal); I50.23 Acute on chronic systolic (congestive) heart failure; J96.01 Acute respiratory failure with hypoxia; J96.02 Acute respiratory failure with hypercapnia; E43 Unspecified severe protein-calorie malnutrition; J69.0 Pneumonitis due to inhalation of food and vomit; I13.0 Hypertensive heart and chronic kidney disease with heart failure and stage 1 through stage 4 chronic kidney disease, or unspecified chronic kidney disease; L03.116 Cellulitis of left lower limb; L03.115 Cellulitis of right lower limb; D68.59 Other primary thrombophilia; N39.0 Urinary tract infection, site not specified; J98.11 Atelectasis; I48.92 Unspecified atrial flutter; I49.5 Sick sinus syndrome; Z79.01 Long term (current) use of anticoagulants; Z79.899 Other long term (current) drug therapy; E78.5 Hyperlipidemia, unspecified; I48.0 Paroxysmal atrial fibrillation; D63.8 Anemia in other chronic diseases classified elsewhere; E55.9 Vitamin D deficiency, unspecified; F01.50 Vascular dementia, unspecified severity, without behavioral disturbance, psychotic disturbance, mood disturbance, and anxiety; R60.0 Localized edema; L60.3 Nail dystrophy; Z74.01 Bed confinement status; E87.6 Hypokalemia; I25.10 Atherosclerotic heart disease of native coronary artery without angina pectoris; F29 Unspecified psychosis not due to a substance or known physiological condition; R62.7 Adult failure to thrive; F03.90 Unspecified dementia, unspecified severity, without behavioral disturbance, psychotic disturbance, mood disturbance, and anxiety; R73.9 Hyperglycemia, unspecified; M85.80 Other specified disorders of bone density and structure, unspecified site; I70.0 Atherosclerosis of aorta; I48.2 Chronic atrial fibrillation; I35.0 Nonrheumatic aortic (valve) stenosis; F39 Unspecified mood [affective] disorder; Z91.81 History of falling; N18.9 Chronic kidney disease, unspecified
CPT/HCPCS: 32555; 36415; 36600; 70030-TC; 71045; 80307; 83615; 83735; 83986; 84100; 84155; 84443; 85025; 85730; 87070; 87086; 87205; 93005; 93307; 93880; 94640; 94664; A4217; A4649; A4663; C1758; C1769; G0378; G0480; G0480-TC; J0690; J1120; J1160; J1200; J1630; J1940; J2060; J2270; J2543; J3010; J3370; J3475; J3480; J3490; J7040; J7050; J7120; Q9967